=== PATIENT | female | born 1950 | race Hispanic/Latino ===

== ENCOUNTER → 2019-01-29 | Outpatient (CLI) | payer MEDICARE ==
[~2019-01-29] VITALS: Ht 147.3 cm; Wt 73.0 kg
[~2019-01-29] MED LIST: REGADENOSON 0.4 MG/5 ML PF SYG IVP SCH
== END | disposition home or self-care (01) ==
LOC: SHCH 07:58
PROVIDERS: ATTEND Internal Medicine Cardiovascular Disease
DX: I11.9 Hypertensive heart disease without heart failure (principal); R07.9 Chest pain, unspecified
CPT/HCPCS: 78452; 93017; A9500 ×2; J2785; 96374

== ENCOUNTER → 2021-02-07 | Outpatient (CLI) | payer OTHER | END | disposition home or self-care (01) | LOC: RAH 12:33 | PROVIDERS: ATTEND Internal Medicine Endocrinology, Diabetes & Metabolism | DX: E04.2 Nontoxic multinodular goiter (principal); D35.1 Benign neoplasm of parathyroid gland; E21.0 Primary hyperparathyroidism | CPT/HCPCS: 76536; 78070; A9500 ==

== ENCOUNTER → 2022-07-12 | Outpatient (CLI) | payer OTHER ==
[~2022-07-12] MED LIST changes: +CYCL10TA16 PO; -REGADENOSON 0.4 MG/5 ML PF SYG IVP SCH
== END | disposition home or self-care (01) ==
LOC: RAH 09:42
PROVIDERS: ATTEND Internal Medicine Endocrinology, Diabetes & Metabolism
DX: E04.2 Nontoxic multinodular goiter (principal)
CPT/HCPCS: 76536

== ENCOUNTER → 2023-01-31 | Outpatient (CLI) | payer OTHER | END | disposition home or self-care (01) | LOC: RAH 15:02 | PROVIDERS: ATTEND Internal Medicine Endocrinology, Diabetes & Metabolism | DX: E04.2 Nontoxic multinodular goiter (principal) | CPT/HCPCS: 76536 ==

== ENCOUNTER → 2024-02-03 | Outpatient (CLI) | payer OTHER ==
[2024-02-03 14:16] LABS: ALBUMIN 3.9 g/dL (3.5-5.0); CREATININE 0.8 mg/dL (0.5-1.0); PHOSPHORUS 4.2 mg/dL (2.5-4.9); POTASSIUM 3.5 mmol/L (3.5-5.1); THYROID STIMULATING HORMONE 1.49 uIU/mL (0.36-3.74)
== END | disposition home or self-care (01) ==
LOC: RAH 12:59
PROVIDERS: ATTEND Internal Medicine Endocrinology, Diabetes & Metabolism
DX: E04.2 Nontoxic multinodular goiter (principal); E21.0 Primary hyperparathyroidism; M81.8 Other osteoporosis without current pathological fracture
CPT/HCPCS: 36415; 76536; 80069; 82306; 83970; 84439; 84443